=== PATIENT | male | born 1980 | race Caucasian/White ===

== ENCOUNTER → 2016-08-21 | Outpatient (CLI) | payer MEDICARE, OTHER ==
[~2016-08-21] MED LIST: ACET500C PO; CAMPRAL PO; FISH1000 PO; GABA600T3 OR; IBUP600T26 PO; LUNE2TAB OR; MINI2CAP PO; MULT1TAB10 PO; PERC5TAB8 OR; PROZ20CA11 PO; ROZE8TAB9 PO; SERO1TAB PO; TRAZ150T14 PO; VIST50CA PO; VITA1CAP2 PO; ZOLO100T OR; [UNRECOGNIZED DRUG - OTHER] PO
== END ==
LOC: M OUTALCOH 07:52
PROVIDERS: ATTEND Psychiatry & Neurology Psychiatry
DX: F10.20 Alcohol dependence, uncomplicated (principal); F14.20 Cocaine dependence, uncomplicated; F11.20 Opioid dependence, uncomplicated

== ENCOUNTER 2016-09-18 13:30 | Outpatient (RCR) | payer MEDICARE, OTHER | END 2016-09-23 | LOC: M OUTALCOH 13:30 | PROVIDERS: ATTEND Psychiatry & Neurology Psychiatry | DX: F10.20 Alcohol dependence, uncomplicated (principal); F14.20 Cocaine dependence, uncomplicated; F11.20 Opioid dependence, uncomplicated; F17.200 Nicotine dependence, unspecified, uncomplicated ==

== ENCOUNTER 2016-10-20 11:16 | Outpatient (RCR) | payer MEDICARE, OTHER | END 2016-10-24 | LOC: M OUTALCOH 11:16 | PROVIDERS: ATTEND Psychiatry & Neurology Psychiatry | DX: F10.20 Alcohol dependence, uncomplicated (principal); F14.20 Cocaine dependence, uncomplicated; F11.10 Opioid abuse, uncomplicated; F17.200 Nicotine dependence, unspecified, uncomplicated ==

== ENCOUNTER 2017-05-14 05:43 | Emergency (ER) | payer MEDICARE, OTHER, SELFPAY ==
[~2017-05-14] VITALS: Ht 177.8 cm; Wt 79.5 kg
[~2017-05-14 05:43] MED LIST changes: +IBUP-1022 PO; -IBUP600T26 PO; +ROZE8TAB16 PO; -ROZE8TAB9 PO; -TRAZ150T14 PO; +TRAZ1TAB14 PO
[2017-05-14 07:12] LABS: MEAN CORPUSCULAR HEMOGLOBIN 29.3 pg (27.0-33.0); MEAN CORPUSCULAR HGB CONC 32.5 g/dl (32.0-36.5); MEAN CORPUSCULAR VOLUME 90.1 fl (80.0-96.0); RED CELL DISTRIBUTION WIDTH 13.9 % (11.5-14.5); WHITE BLOOD COUNT 11.3 10^3/uL (4.0-10.0)
[2017-05-14 07:37] LABS: ALBUMIN 4.1 GM/DL (3.2-5.2); ALBUMIN/GLOBULIN RATIO 1.28 (1.00-1.93); ALKALINE PHOSPHATASE 65 U/L (45-117); ALT/SGPT 24 U/L (12-78); ANION GAP 5 MEQ/L (8-16); AST/SGOT 9 U/L (15-37); BILIRUBIN,DIRECT 0.2 MG/DL (0.0-0.2); BILIRUBIN,TOTAL 0.6 MG/DL (0.2-1.0); BLOOD UREA NITROGEN 17 MG/DL (7-18); CALCIUM LEVEL 8.9 MG/DL (8.5-10.1); CARBON DIOXIDE LEVEL 28 MEQ/L (21-32); CHLORIDE LEVEL 107 MEQ/L (98-107); GLOMERULAR FILTRATION RATE > 60.0 (>60); GLUCOSE, FASTING 121 MG/DL (70-105); POTASSIUM SERUM 4.9 MEQ/L (3.5-5.1); SODIUM LEVEL 140 MEQ/L (136-145); TOTAL PROTEIN 7.3 GM/DL (6.4-8.2)
[2017-05-14 07:39] VITALS: BP 136/83
== END 2017-05-14 08:37 | disposition home or self-care (01) ==
LOC: M ED 05:43
DX: F19.90 Other psychoactive substance use, unspecified, uncomplicated (principal); F33.9 Major depressive disorder, recurrent, unspecified; F43.10 Post-traumatic stress disorder, unspecified; F17.210 Nicotine dependence, cigarettes, uncomplicated; Z88.5 Allergy status to narcotic agent
CPT/HCPCS: 36415; 80048; 80076; 84443; 85027; 99283; G0480

== ENCOUNTER 2021-09-19 02:23 | Emergency (ER) | payer OTHER, SELFPAY ==
[~2021-09-19] VITALS: Ht 177.8 cm; Wt 86.5 kg
[~2021-09-19 02:23] MED LIST changes: +VITA-183 PO; -VITA1CAP2 PO
[2021-09-19 08:26] LABS: BLOOD UREA NITROGEN 14 MG/DL (7-18); C REACTIVE PROTEIN QUANTITATIV 3.35 MG/DL (0.00-0.30); CALCIUM LEVEL 9.3 MG/DL (8.5-10.1); CARBON DIOXIDE LEVEL 27 MEQ/L (21-32); CHLORIDE LEVEL 105 MEQ/L (98-107); CREATININE FOR GFR 1.04 MG/DL (0.70-1.30); GLOMERULAR FILTRATION RATE > 60.0 (>60); GLUCOSE, FASTING 96 MG/DL (70-100); POTASSIUM SERUM 4.7 MEQ/L (3.5-5.1); SODIUM LEVEL 139 MEQ/L (136-145)
[2021-09-19] MEDS ORDERED: ISOVUE-370 76% 100ML VIAL As Ordered ONE (08:31)
[2021-09-19 10:10] LABS: BASO % 0.4 % (0.0-1.0); EOS # 0.1 10^3/uL (0.0-0.5); EOS % 0.8 % (0.0-3.0); HEMATOCRIT 47.9 % (42.0-52.0); HEMOGLOBIN 15.9 g/dl (13.5-17.5); LYMPH # 1.9 10^3/uL (1.5-5.0); LYMPH % 17.3 % (24.0-44.0); MEAN CORPUSCULAR HEMOGLOBIN 28.9 pg (27.0-33.0); MEAN CORPUSCULAR HGB CONC 33.2 g/dl (32.0-36.5); MEAN CORPUSCULAR VOLUME 87.1 fl (80.0-96.0); MONO # 1.2 10^3/uL (0.0-0.8); MONO % 11.2 % (2.0-8.0); NEUTROPHILS # 7.6 10^3/uL (1.5-8.5); NEUTROPHILS % 69.8 % (36.0-66.0); PLATELET COUNT, AUTOMATED 268 10^3/uL (150-450); WHITE BLOOD COUNT 10.8 10^3/uL (4.0-10.0)
[2021-09-19] MEDS ORDERED: BACTRIM 160MG/800MG DS TAB PO ONE (10:15)
[2021-09-19 10:41] LABS: ERYTHROCYTE SEDIMENTATION RATE 4 mm/hr (0-15)
[2021-09-19] MEDS ORDERED: BACT800T5 PO (10:55)
[2021-09-19 11:00] VITALS: BP 133/83
== END 2021-09-19 11:10 | disposition home or self-care (01) ==
LOC: M ED 02:23
DX: L03.213 Periorbital cellulitis (principal); F43.10 Post-traumatic stress disorder, unspecified; Z87.820 Personal history of traumatic brain injury; F15.20 Other stimulant dependence, uncomplicated; Z88.5 Allergy status to narcotic agent; F17.210 Nicotine dependence, cigarettes, uncomplicated